=== PATIENT | female | born 1975 | race Caucasian/White ===

== ENCOUNTER 2017-12-05 21:41 | Inpatient (IN) | payer BC ==
[2017-12-05 23:50] LABS: ADD MAN DIFF? NO
[2017-12-05 23:52] LABS: BASOPHIL # 0.1 10^3/ul (0.0-0.1); BASOPHILS % 0.7 % (0.0-2.0); EOSINOPHILS # 0.1 10^3/ul (0.0-0.5); EOSINOPHILS % 1.4 % (0.0-7.0); HEMATOCRIT 41.5 % (37.0-47.0); HEMOGLOBIN 13.7 g/dl (12.0-16.0); LYMPHOCYTES % 26.2 % (15.0-51.0); MEAN CORPUSCULAR VOLUME 84.7 fl (82.0-101.0); MEAN PLATELET VOLUME 9.8 fl (7.4-10.4); MONOCYTE # 0.5 10^3/ul (0.3-0.9); MONOCYTES % 6.6 % (0.0-11.0); NEUTROPHILS % 64.8 % (39.0-77.0); PLATELET COUNT 352 10^3/UL (140-415); RED CELL DISTRIBUTION WIDTH 15.5 % (11.5-14.5)
[2017-12-05 23:52] LABS: WHITE BLOOD COUNT 7.7 10^3/ul (4.8-10.8)
[2017-12-06] MEDS: SOD CHLORIDE 0.9% 500 ML IV (00:12)
[2017-12-06 00:15] LABS: ALANINE AMINOTRANSFERASE 44 IU/L (13-69); ALBUMIN/GLOBULIN RATIO 1.21; ALKALINE PHOSPHATASE 93 IU/L (42-121); ANION GAP 14 (8-16); ASPARTATE AMINO TRANSFERASE 44 IU/L (15-46); BILIRUBIN,INDIRECT 0.4 mg/dl (0-1.1); BILIRUBIN,TOTAL 0.4 mg/dl (0.2-1.3); BLOOD UREA NITROGEN 15 mg/dl (7-20); CALCIUM 9.3 mg/dl (8.4-10.2); CARBON DIOXIDE 29 mmol/L (21-31); CHLORIDE 102 mmol/L (97-110); CREATININE 1.05 mg/dl (0.44-1.00); GLUCOSE 142 mg/dl (70-220); POTASSIUM 4.4 mmol/L (3.5-5.1); SODIUM 141 mmol/L (135-144); TOTAL PROTEIN 7.3 g/dl (6.1-8.1)
[2017-12-06 00:26] LABS: B-TYPE NATRIURETIC PEPTIDE 113 PG/ML (0-125)
[2017-12-06 00:28] LABS: TROPONIN-I < 0.012 ng/ml (0.00-0.12)
[2017-12-06 06:00] LABS: CREATINE KINASE 83 IU/L (23-200)
[2017-12-06] MEDS ORDERED: ACETAMINOPHEN 325 MG TAB PO (06:00)
[2017-12-06] MEDS ORDERED: ONDANSETRON 4 MG INJ IV (06:00)
[2017-12-06] MEDS ORDERED: morphine 2 MG INJ IV (06:00)
[2017-12-06] MEDS ORDERED: NACL 0.9% 3 ML SYG IV (06:00)
[2017-12-06] MEDS ORDERED: NITROGLYCERIN (SL) 0.4 MG TAB SL (06:00)
[2017-12-06 06:05] LABS: CK INDEX 1.8; CK-MB 1.53 ng/ml (0.0-2.4)
[2017-12-06 06:08] LABS: TROPONIN-I < 0.012 ng/ml (0.00-0.12)
[2017-12-06] MEDS: SOD CHLORIDE 0.9% 1,000 ML IV (07:44)
[2017-12-06] MEDS: FERROUS SULFATE (EC) 325 MG TAB PO (09:01)
[2017-12-06] MEDS: ASPIRIN (EC) 81 MG TAB PO (09:01)
[2017-12-06] MEDS: LEVOTHYROXINE 150 MCG TAB PO (10:13)
[2017-12-06 10:14] LABS: CREATINE KINASE 97 IU/L (23-200)
[2017-12-06] MEDS: BUMETANIDE 1 MG TAB PO (10:14)
[2017-12-06 10:15] LABS: MAGNESIUM 1.9 mg/dl (1.7-2.5)
[2017-12-06] MEDS: LOSARTAN 25 MG TAB PO (10:16)
[2017-12-06] MEDS: PRASUGREL HYDROCHLORIDE 10 MG TABLET PO (10:16)
[2017-12-06] MEDS: RANOLAZINE (SR) 500 MG TAB PO (10:17)
[2017-12-06] MEDS: MONTELUKAST 10 MG TAB PO (10:18)
[2017-12-06] MEDS: PYRIDOXINE 50 MG TAB PO (10:19)
[2017-12-06 10:26] LABS: CK INDEX 1.9; CK-MB 1.87 ng/ml (0.0-2.4)
[2017-12-06 10:38] LABS: TROPONIN-I < 0.012 ng/ml (0.00-0.12)
[2017-12-06 12:38] LABS: ADD UMIC YES; UR ASCORBIC ACID NEGATIVE (NEGATIVE); UR BILIRUBIN (Dip) NEGATIVE (NEGATIVE); UR BLOOD (Dip) 3+ mg/dL (NEGATIVE); UR CLARITY CLEAR (CLEAR); UR COLOR STRAW (YELLOW); UR GLUCOSE (Dip) NEGATIVE (NEGATIVE); UR KETONES (Dip) NEGATIVE (NEGATIVE); UR LEUKOCYTE ESTERASE (Dip) NEGATIVE Leu/ul (NEGATIVE); UR NITRITE (Dip) NEGATIVE (NEGATIVE); UR RBC 5 /HPF (0-5); UR SPECIFIC GRAVITY (Dip) 1.004 (1.003-1.030); UR TOTAL PROTEIN (Dip) NEGATIVE (NEGATIVE); UR UROBILINOGEN (Dip) NEGATIVE (NEGATIVE); UR WBC 1 /HPF (0-5)
[2017-12-06] MEDS: REGADENOSON 0.4 MG/5 ML SYG (13:22)
[2017-12-06] MEDS ORDERED: ATORVASTATIN 80 MG TAB PO (21:00)
[2017-12-06] MEDS ORDERED: traZODone 50 MG TAB PO (21:00)
== END 2017-12-06 17:54 | disposition home or self-care (01) | DRG 313 ==
LOC: E/R 21:41 → MS3 12-06 05:44
DX: R07.9 Chest pain, unspecified (principal); I10 Essential (primary) hypertension; I25.10 Atherosclerotic heart disease of native coronary artery without angina pectoris; E78.5 Hyperlipidemia, unspecified; R60.9 Edema, unspecified; E11.9 Type 2 diabetes mellitus without complications; Z79.4 Long term (current) use of insulin; Z95.5 Presence of coronary angioplasty implant and graft
CPT/HCPCS: 36415; 71045; 78452; 80053; 81001; 82550; 82553; 82962; 83036; 83735; 83880; 84443; 84484; 85025; 93005; 93017; 93306; 93922; 93923; 99285-25